=== PATIENT | female | born 1970 | race African-American/Black ===

== ENCOUNTER 2023-10-17 04:03 | Day surgery (SDC) | payer OTHER ==
[2023-10-17 08:34] VITALS: BMI 20.9
[2023-10-17] MEDS ORDERED: BUPIVACAINE HCL/PF 0.25% (2.5MG/ML) 10 ML VIAL ONE (09:30)
[2023-10-17] MEDS ORDERED: DEXAMETHASONE SOD PHOSPHATE 10 MG/1 ML VIAL ONE (09:31)
[2023-10-17] MEDS ORDERED: LIDOCAINE HCL/PF 1% SDV 5ML VIAL ONE (09:31)
[2023-10-17] MEDS ORDERED: SODIUM CHLORIDE 0.9% P/F 10 ML VIAL IJ ONE (09:37)
[2023-10-17] MEDS ORDERED: ONDANSETRON 4 MG/2 ML VIAL ONE (09:48)
[2023-10-17] MEDS ORDERED: PROPOFOL 20 ML ONE (09:54)
[2023-10-17] MEDS ORDERED: MIDAZOLAM HCL 2 MG/2 ML SINGLE DOSE VIAL ONE ×2 (09:56→11:07)
[2023-10-17] MEDS ORDERED: FENTANYL CITRATE/PF 50 MCG/ML VIAL ONE ×2 (09:56→11:07)
[2023-10-17] MEDS: DEXAMETHASONE SOD PHOSPHATE 10 MG/1 ML VIAL IVPUSH ONE ×2 (11:24)
[2023-10-17] MEDS: IOHEXOL 180 MG/1 ML ML IJ ONE (11:24)
[2023-10-17] MEDS: BUPIVACAINE HCL/PF 0.25% (2.5MG/ML) 10 ML VIAL IJ ONE ×2 (11:24)
[2023-10-17] MEDS: LIDOCAINE 1% P/F 10 MG/ML VIAL INF ONE (11:24)
[2023-10-17 11:53] VITALS: RESP 20
[2023-10-17 15:33] VITALS: BP 104/68; PULSE 55; TEMP 97.6
== END 2023-10-17 12:50 | disposition home or self-care (01) ==
LOC: JASU-SURG 04:03
PROVIDERS: ATTEND Physical Medicine & Rehabilitation
PROC: 3E0R3BZ Introduction of Anesthetic Agent into Spinal Canal, Percutaneous Approach (ICD-10-PCS; 2023-10-17)
PROC: 3E0R33Z Introduction of Anti-inflammatory into Spinal Canal, Percutaneous Approach (ICD-10-PCS; principal; 2023-10-17 10:00)
DX: M54.16 Radiculopathy, lumbar region (principal); M54.50 Low back pain, unspecified
CPT/HCPCS: 76000-TC-FY; J1100